=== PATIENT | male | born 1960 | race Caucasian/White ===

== ENCOUNTER 2020-09-03 23:54 | Emergency (ER) | payer BC, OTHER ==
[~2020-09-03] VITALS: Ht 177.8 cm; Wt 120.2 kg
--- NOTE | 2020-09-04 00:05 | ED Back Pain ---
General Chief Complaint: Back Problems Stated Complaint: BACKACHE History of Present Illness Date Seen by Provider: Sep 04, 2020 Time Seen by Provider: 00:05 Initial Comments 61-year-old male presents with right flank/lateral back pain. Is been coming and going throughout the evening. He reports when he gets the pain he gets very nauseated. He does report he was recently treated for UTI and is on Cipro. He does not complain of the pain radiating. He does not complain of any urinary symptoms at this time. No reports of fevers or chills. The pain does not get worse with movement. No vomiting or diarrhea just the nausea. No other systemic complaints. Allergies and Home Medications Allergies Coded Allergies: No Known Drug Allergies (Unverified , 09/04/20) Home Medications Hydrocodone/Acetaminophen 1 Each Tablet, 1 TAB PO Q8H PRN for PAIN-MODERATE (5- 7) Prescribed by: PATRICIA CRUZ on 09/04/2050 Ondansetron 4 Mg Tab.rapdis, 4 MG PO Q6H PRN for NAUSEA/VOMITING Prescribed by: PATRICIA CRUZ on 09/04/2050 Tamsulosin HCl 0.4 Mg Cap, 0.4 MG PO DAILY Prescribed by: PATRICIA CRUZ on 09/04/2050 Patient Home Medication List Home Medication List Reviewed: Yes Review of Systems Constitutional: No chills, No fever EENTM: no symptoms reported Respiratory: No cough, No short of breath Cardiovascular: No chest pain, No palpitations Gastrointestinal: No abdominal pain Genitourinary: no symptoms reported Musculoskeletal: see HPI, back pain Skin: no symptoms reported Psychiatric/Neurological: No Symptoms Reported Past [place]-Maamgc-Qbounh Hx Past Med/Social Hx: Reviewed Nursing Past Med/Soc Hx Physical Exam Vital Signs Vital Signs - First Documented 09/04/20 00:04 Temp 36.9 Pulse 97 Resp 17 B/P (MAP) 136/92 (107) O2 Delivery Room Air Capillary Refill : Height, Weight, BMI Height: '" Weight: lbs. oz. kg; BMI Method: General Appearance: No Apparent Distress, WD/WN Neck: Non Tender, Supple Cardiovascular: Regular Rate, Rhythm, No Edema Respiratory: Lungs Clear, Normal Breath Sounds Gastrointestinal: Non Tender, Soft Back: No CVA Tenderness, No Vertebral Tenderness; No CVA Tenderness (L), No CVA Tenderness (R) Extremity: Normal Capillary Refill, Normal Inspection Neurologic/Psychiatric: Alert, Oriented x3, No Motor/Sensory Deficits, Normal Mood/Affect, roll carrier II-XII Norm as Tested Skin: Normal Color, Warm/Dry Progress/Results/Core Measures Results/Orders Lab Results Laboratory Tests Test 09/04/20 00:20 Range/Units Urine Color YELLOW Urine Clarity SLIGHTLY CLOUDY Urine pH 5.5 5-9 Urine Specific [place] 1.025 H 1.016-1.022 Urine Protein NEGATIVE NEGATIVE Urine Glucose (UA) NEGATIVE NEGATIVE Urine Ketones NEGATIVE NEGATIVE Urine Nitrite NEGATIVE NEGATIVE Urine Bilirubin NEGATIVE NEGATIVE Urine Urobilinogen 1.0 < = 1.0 MG/DL Urine Leukocyte Esterase NEGATIVE NEGATIVE Urine RBC (Auto) 2+ H NEGATIVE Urine RBC 0-2 /HPF Urine WBC 0-2 /HPF Urine Squamous Epithelial Cells 0-2 /HPF Urine Crystals NONE /LPF Urine Bacteria TRACE /HPF Urine Casts PRESENT /LPF Urine Hyaline Casts 0-2 H /LPF Urine Mucus SMALL H /LPF Urine Culture Indicated NO My Orders Orders - PATRICIA CRUZ DO Ct Abdomen/Pelvis Wo (09/04/20 00:12) Abdomen (Kub) 1 View (09/04/20 00:12) Ua Culture If Indicated (09/04/20 00:12) Ondansetron Oral Dissolve Tab (Zofran (09/04/20 00:12) Ketorolac Injection (Toradol Injection) (09/04/20 00:12) Vital Signs/I&O 09/04/20 00:04 Temp 36.9 Pulse 97 Resp 17 B/P (MAP) 136/92 (107) O2 Delivery Room Air Departure Impression Primary Impression: Calculus of proximal right ureter Disposition: HOME, SELF-CARE Condition: Stable Departure-Patient Inst. Referrals: AL SCHROEDER APRN (PCP) Primary Care Physician CAMRYN JUAREZ MD (Family) Primary Care Physician Patient Instructions: Renal Colic (DC), Kidney Stone, Adult ED Add. Discharge Instructions: Follow-up with your primary care provider in a couple days Strain your urine Call Dr. Najera's office for an appointment for follow-up All discharge instructions reviewed with patient and/or family. Voiced understanding. Scripts Hydrocodone/Acetaminophen (Hydrocodone-Acetamin 5-325 mg) 1 Each Tablet 1 TAB PO Q8H PRN for PAIN-MODERATE (5-7), #10 TAB Prov: PATRICIA CRUZ DO 09/04/20 Ondansetron (Ondansetron Odt) 4 Mg Tab.rapdis 4 MG PO Q6H PRN for NAUSEA/VOMITING, #20 TAB 0 Refills Prov: PATRICIA CRUZ DO 09/04/20 Tamsulosin HCl (Flomax) 0.4 Mg Cap 0.4 MG PO DAILY, #20 CAP Prov: PATRICIA CRUZ DO 09/04/20 PATRICIA CRUZ DO Sep 04, 2020 00:05
[2020-09-04] MEDS ORDERED: ONDANSETRON 4 MG (ZOFRAN) ORAL DISSOLVE TAB SL STA (00:12)
[2020-09-04] MEDS ORDERED: KETOROLAC 30 MG/ML VIAL IM STA (00:12)
[2020-09-04 00:43] LABS: BACTERIA,URINE TRACE /HPF; BILIRUBIN,URINE NEGATIVE (NEGATIVE); CLARITY,URINE SLIGHTLY CLOUDY; COLOR,URINE YELLOW; GLUCOSE, URINE (UA) NEGATIVE (NEGATIVE); KETONES,URINE NEGATIVE (NEGATIVE); LEUKOCYTE ESTERASE ,URINE NEGATIVE (NEGATIVE); NITRITE,URINE NEGATIVE (NEGATIVE); PH,URINE 5.5 (5-9); PROTEIN,URINE NEGATIVE (NEGATIVE); RBC,URINE 0-2 /HPF; SQUAMOUS EPITHELIAL CELL,UR 0-2 /HPF; WBC,URINE 0-2 /HPF
[2020-09-04 00:44] LABS: HYALINE CASTS, URINE 0-2 /LPF
[2020-09-04] MEDS ORDERED: ACHD5005 PO (00:51)
[2020-09-04] MEDS ORDERED: TMSL.4C PO (00:51)
[2020-09-04] MEDS ORDERED: ONDA4TAB11 PO (00:51)
[2020-09-04 01:30] VITALS: BP 151/82
--- NOTE | 2020-09-04 06:39 | Diagnostic Imaging Report ---
PROCEDURE: CT abdomen and pelvis without contrast. TECHNIQUE: Multiple contiguous axial images were obtained through the abdomen and pelvis without the use of intravenous contrast. Auto Exposure Controls were utilized during the CT exam to meet ALARA standards for radiation dose reduction. INDICATION: Right flank pain, kidney stone COMPARISON: None FINDINGS: There is mild right-sided hydronephrosis secondary to a 2 mm stone in the proximal right ureter. The remainder of the visualized ureter, left kidney and bladder are unremarkable. Additional nonobstructive stone is seen in the lower pole of the right kidney. Multiple gallstones are present. The remainder of the solid organs, bowel, and lung bases are clear. There is a small hiatal hernia. IMPRESSION: 1. Right-sided hydronephrosis secondary to an obstructive 2 mm stone proximal right ureter. 2. Cholelithiasis without cholecystitis Agree with the preliminary report. Dictated by: Dictated on workstation # [id number]
--- NOTE | 2020-09-04 06:55 | Diagnostic Imaging Report ---
INDICATION: Flank pain COMPARISON: None FINDINGS: Two views of the abdomen demonstrate presumed renal calculus in the right upper quadrant near the L1-L2 disc space. Bowel gas pattern is normal. No large pocket of free air seen. IMPRESSION: Suspect right renal calculus. See dictated CT report. Dictated by: Dictated on workstation # [id number]
== END 2020-09-04 01:30 | disposition home or self-care (01) ==
LOC: ER FS 09-04
DX: N20.1 Calculus of ureter (principal); Z79.2 Long term (current) use of antibiotics
CPT/HCPCS: 74018; 74176; 81000